=== PATIENT | female | born 1970 | race Caucasian/White ===

== ENCOUNTER 2023-12-16 12:19 | Emergency (ER) | payer MEDICAID ==
[~2023-12-16] VITALS: Ht 165.1 cm; Wt 84.5 kg
[2023-12-16] MEDS ORDERED: ACET5ELI PO (16:21)
[2023-12-16] MEDS ORDERED: ACET1TAB96 PO (16:38)
[2023-12-16 16:50] VITALS: BP 124/76; PULSE 88; RESP 18; TEMP 97.8; O2SAT 97
== END 2023-12-16 16:53 | disposition home or self-care (01) ==
LOC: ER 12:20
DX: S29.012A Strain of muscle and tendon of back wall of thorax, initial encounter (principal); M54.50 Low back pain, unspecified; Z88.0 Allergy status to penicillin; Z88.2 Allergy status to sulfonamides; Z88.1 Allergy status to other antibiotic agents; Z88.6 Allergy status to analgesic agent; Z79.1 Long term (current) use of non-steroidal anti-inflammatories (NSAID); X58.XXXA Exposure to other specified factors, initial encounter; Y93.89 Activity, other specified; Y92.89 Other specified places as the place of occurrence of the external cause; Y99.8 Other external cause status
CPT/HCPCS: 72074; 72100; 99284